=== PATIENT | male | born 2000 | race Caucasian/White ===

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

== ENCOUNTER 2022-01-05 04:11 | Emergency (ER) | payer MEDICAID, SELFPAY ==
[2022-01-05 04:23] VITALS: BP 142/90; PULSE 94; RESP 16; TEMP 36.6; O2SAT 98; BMI 40.6
--- NOTE | 2022-01-05 05:03 | XRR_ITS ---
PROCEDURE INFORMATION: Exam: XR Chest Exam date and time: 01/05/2022 6:06 AM Age: 21 years old Clinical indication: Shortness of breath; Additional info: SOB TECHNIQUE: Imaging protocol: Radiologic exam of the chest. Views: 1 view. COMPARISON: No relevant prior studies available. FINDINGS: Lungs: Unremarkable. No consolidation. Pleural spaces: Unremarkable. No pleural effusion. No pneumothorax. Heart/Mediastinum: Unremarkable. No cardiomegaly. Bones/joints: Unremarkable. XR/XR chest 1V portable [id number] IMPRESSION: No acute findings.
--- NOTE | 2022-01-05 05:03 | ECG_ITS ---
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 Measurements Intervals [place] Rate: 79 P: 49 WA: 150 QRS: 19 QRSD: 122 T: 10 QT: 359 QTc: 412 Interpretive Statements SINUS RHYTHM MODERATE INTRAVENTRICULAR CONDUCTION DELAY [110+ ms QRS DURATION] No previous ECG available for comparison Electronically Signed On 01-05-2022 8:37:41 CDT by Sathish Husain M.D. [id number]
--- NOTE | 2022-01-05 05:38 | W.ED.GENADLT ---
HPI - General Adult General: Chief complaint: General Medical Stated complaint: Hard to breathe Time Seen by Provider: 01/05/22 04:36 Source: patient and family History of Present Illness: 21-year-old male who snorted 3 lines of a white substance 3 days ago. Since that time, he is not been able to sleep well. He gets short of breath while lying down. He feels his heart racing at times. He remains nauseated from this. He is not had the symptoms before, as he has never tried anything like this before, and became worried that something was terribly wrong this morning. Onset (ago): day(s) Radiation: other Quality: other Pain Consistency: other Relieving factors: none Associated symptoms: Reports dyspnea, headache(s), nausea and palpitations; Deny chest pain, confusion, cough, diaphoresis, decreased appetite, fevers/chills, syncope or vomiting Review of Systems Const: Denies: fever(s) or diaphoresis Eyes: Denies: change in vision Card: Reports: palpitations; Denies: chest pain or syncope Resp: Reports: dyspnea GI: Reports: nausea; Denies: vomiting Neuro: Reports: headache(s); Denies: confusion Physical Exam Const: COMMON NORMALS: no acute distress GENERAL APPEARANCE: cooperative and well kempt; not ill appearing HENMT: COMMON NORMALS: normocephalic, atraumatic and Normal external nose present HEAD & SCALP: normocephalic and atraumatic FACE & SINUS: normal facial exam and face symmetric NOSE: Normal external nose present Eye: COMMON NORMALS: Equal, round and reactive pupils present and EOMs intact bilaterally PUPIL: Yes Equal, round and reactive pupils present Neck/C-Spine: GENERAL: Yes trachea midline Chest: CHEST: Yes Symmetrical chest wall rise Resp: COMMON NORMALS: normal respiratory effort, No retractions, No use of accessory muscles and clear to auscultation bilaterally AUSCULTATION: clear to auscultation bilaterally Cardio: COMMON NORMALS: regular rate and regular rhythm RATE: regular rate RHYTHM: regular rhythm GI: COMMON NORMALS: Normal to inspection, nondistended, normoactive bowel sounds present and Soft to palpation PALPATION: Yes Soft to palpation Extremity: COMMON NORMALS: no pedal edema Neuro: RAINER COMA SCALE: document GCS findings Rainer coma scale eye opening: Spontaneous Gilchrist coma scale verbal response: Orientated Gilchrist coma scale motor response: Obey commands Gilchrist coma scale total score: 15 Psych: APPEARANCE: Yes well kempt Course Vital Signs: Vital signs: Vital Signs Temperature 97.8 F 01/05/22 04:23 Pulse Rate 92 01/05/22 06:17 Respiratory Rate 17 01/05/22 06:17 Blood Pressure 138/79 01/05/22 06:17 Pulse Oximetry 98 01/05/22 06:17 [facility] - General Adult Medical Decision Making Patient is clinically stable. Blood pressure is 142/90. Saturations are 98% on room air, his heart rate is 80-90, sinus. His EKG shows a sinus rhythm with mild IVCD delay, which is common in this age group. The axis is normal. There were no ST changes, and no Q waves. Chest x-ray is pending. He was reassured, that although the half-life of methamphetamine is decently long, the effects will wear off. He will be treated with Zofran for nausea. He was told that he can use his albuterol inhaler at home, as he has a history of asthma should he feel short of breath. Lab Data Radiology Impressions Chest X-Ray 01/05/22 05:03 IMPRESSION: No acute findings. Discharge Plan Discharge Patient Disposition: Home Clinical Impression: Adverse drug reaction Condition: Stable Prescriptions: New ondansetron 4 mg film 4 mg PO DAILY PRN (Reason: nausea and vomiting) Qty: 10 0RF Discharge Orders: Discharge ED (Routine); Ordered 01/05/22 Ordered By: Gee Cloud Referrals: Dalton Laurent DO [Primary Care Provider] - 1-3 days Discharge Diet: Advance as tolerated Discharge Activity: Increase activity as tolerated Patient Instructions: Adverse Drug Reaction (ED) Activity Restrictions/Additional Instructions: Return for fever, vomiting, worsening symptoms despite treatment. Hydrate. Coding Level of Care Code ED Cook Helper for Lisette Lynn
[2022-01-05 06:17] VITALS: BP 138/79; PULSE 92; RESP 17; O2SAT 98
== END 2022-01-05 06:18 | disposition home or self-care (01) ==
PROVIDERS: Emergency Provider Emergency Medicine; PCP Electrodiagnostic Medicine
DX: T88.7XXA Unspecified adverse effect of drug or medicament, initial encounter (principal); T43.625A Adverse effect of amphetamines, initial encounter
CPT/HCPCS: 71045; 93005; 99283

== ENCOUNTER 2022-02-24 20:07 | Emergency (ER) | payer MEDICAID, SELFPAY ==
[2022-02-24 20:27] VITALS: BMI 37.3
[2022-02-24 20:30] VITALS: BP 121/60; PULSE 75; RESP 15; TEMP 36.8; O2SAT 98
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
[2022-02-24] MEDS: tetanus-dipt-pertussis 0.5 mL SDV IM (21:25)
[2022-02-24] MEDS: cefTRIAXone 1,000 MG in lidocaine 1% 2.1 ML 2.1 MG IM (21:25)
== END 2022-02-24 21:28 | disposition home or self-care (01) ==
PROVIDERS: Emergency Provider Emergency Medicine; PCP Electrodiagnostic Medicine
DX: S61.411A Laceration without foreign body of right hand, initial encounter (principal); W26.8XXA Contact with other sharp object(s), not elsewhere classified, initial encounter; Z23 Encounter for immunization
CPT/HCPCS: 90471; 90715; 96372; 99284; J0696

== ENCOUNTER 2022-03-16 14:11 | Emergency (ER) | payer MEDICAID, SELFPAY ==
[2022-03-16 14:15] VITALS: PULSE 89; RESP 18; TEMP 36.4; O2SAT 95; BMI 37.3
--- NOTE | 2022-03-16 14:34 | W.ED.GENADLT ---
HPI - General Adult General: Chief complaint: Abdominal Pain Stated complaint: Confusion, body pain Time Seen by Provider: 03/16/22 14:34 History of Present Illness: Patient is a 21-year-old male with history chronic alcohol use presents emergency complaints of left lower quadrant abdominal pain for the last 2 weeks and worsening. Patient tells me that every time she eats, he has significant abdominal pain shortly after. Patient also reports 1 episode emesis today. Patient reports that he Has intermittent forgetfulness and brain fog throughout the day. Patient denies any cough, runny nose sore throat, diarrhea melena/hematochezia. No complaints. No rash or other focal complaints at this time. Onset:2 weeks ago Duration:2 weeks Location:home Severity:moderate Associated symptoms: Reports nausea and vomiting; Deny chest pain, dyspnea, rash or palpitations Review of Systems Const: Denies: fever(s) or chills Eyes: Denies: change in vision ENMT: Denies: mouth pain Card: Denies: chest pain or palpitations Resp: Denies: dyspnea or non-productive cough GI: Reports: abdominal pain, nausea and vomiting; Denies: diarrhea : Denies: dysuria Musc: Denies: extremity pain Skin/Breast: Denies: rash or new lesions Neuro: Denies: weakness in extremities Psych: Reports: other (Normal mood) Andrie/Lymph: Denies: easy bruising PFSH ED PFSH: Medical History No pertinent past medical history Social History Smoking and tobacco status: never smoked Alcohol intake: current Substance/Drug Use: never Physical Exam Const: COMMON NORMALS: alert HENMT: COMMON NORMALS: atraumatic HEAD & SCALP: atraumatic MOUTH: moist mucous membranes not abnormal Eye: COMMON NORMALS: EOMs intact bilaterally and conjunctivae normal CONJUNCTIVA: Yes conjunctivae normal Neck/C-Spine: COMMON NORMALS: full ROM and supple Resp: COMMON NORMALS: normal respiratory effort and clear to auscultation bilaterally AUSCULTATION: clear to auscultation bilaterally Cardio: COMMON NORMALS: regular rate RATE: regular rate GI: COMMON NORMALS: Soft to palpation and non-tender PALPATION: Yes Soft to palpation OTHER: No focal TTP. NO guarding rebound, guarding, rigidity. No CVA tenderness to percussion. Neg Garcia/Neg McBurney's point tenderness, no suprabupic tenderness to palpation. Extremity: COMMON NORMALS: full ROM Neuro: SENSORIUM/ORIENTATION: Yes alert MOTOR EXAM: No Abnormal motor strength present and Other motor observations present (no focal motor deficits) Psych: COMMON NORMALS: speech normal SPEECH: Yes normal speech MOOD & AFFECT: Yes euthymic mood Course Vital Signs: Vital signs: Vital Signs Temperature 97.6 F 03/16/22 14:15 Pulse Rate 89 03/16/22 14:15 Respiratory Rate 18 03/16/22 14:15 Pulse Oximetry 95 03/16/22 14:15 Oxygen Delivery Me thod 03/16/22 14:15 MDM - General Adult Medical Decision Making Patient is a 21-year-old male with history chronic alcohol use presents emergency complaints of left lower quadrant abdominal pain for the last 2 weeks worse with p.o. intake. On exam, patient no focal tenderness palpation. No guarding or rebound tenderness. Patient is afebrile, hemodynamic stable, in no acute pain. White count no show no leukocytosis. Lab within normal. UA negative for any signs of UTI or kidney stones. Patient received GI cocktail and IVF referred feeling symptomatically improved. No suspicion for other acute intra-abdominal pathology including SBO, biliary pathology, appendicitis, diverticulitis, or other emergent condition requiring surgery. Rx Protonix PRN abd pain, maalox/pepcid PRN dyspepsia, and zofran PRN nausea/vomiting Disposition: Discharge. Patient counseled regarding diagnostic impression, treatment plan. Patient given ED strict return precautions to return for continuation, worsening, or development of new symptoms. Instructed to f/u w/ PCP regarding symptoms today. Patient verbalized understanding. Discharge Plan Discharge Condition: Stable Prescriptions: No Action ondansetron 4 mg film 4 mg PO DAILY PRN (Reason: nausea and vomiting) Qty: 10 0RF Referrals: Dalton Laurent DO [Primary Care Provider] - Coding Level of Care Code ED Residential Property Manager for Chg Fwd Exam Comprehensive
--- NOTE | 2022-03-16 14:35 | ECG_ITS ---
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 Measurements Intervals [place] Rate: 73 P: 44 AR: 157 QRS: 22 QRSD: 110 T: 26 QT: 365 QTc: 402 Interpretive Statements SINUS RHYTHM WITH SINUS ARRHYTHMIA Compared to ECG 01/05/2022 05:10:39 Intraventricular conduction delay no longer present Electronically Signed On 03-16-2022 18:26:37 CDT by Ventura Drew M.D. [id number]
[2022-03-16] MEDS: lidocaine 2% viscous 15 ML, aluminum-mag hydrox-simethicon 30 ML, sucralfate oral liq 1 GM PO (14:53)
[2022-03-16] MEDS: sodium chloride 0.9% 1,000 ML 999 ML IV (14:54)
[2022-03-16 14:58] VITALS: BP 115/42; PULSE 89; RESP 18; TEMP 36.4; O2SAT 95
[2022-03-16 15:10] LABS: Add Urine Microscopic? NO; Charge for UA Resulting for Rev
[2022-03-16 15:12] LABS: Basophils # 0.1 10^3/uL (0.0-0.1); Basophils % 0.9 %; Eosinophils # 0.3 10^3/uL (0.0-0.8); Hematocrit 44.7 % (42.0-52.0); Hemoglobin 15.1 g/dL (11.7-16.6); Lymphocytes # 2.5 10^3/uL (1.5-6.5); Lymphocytes % 27.5 %; Mean Corpuscular HGB Conc 33.8 g/dL (30.0-36.0); Mean Corpuscular Hemoglobin 30.8 pg (28.0-34.0); Mean Platelet Volume 9.8 fL (7.4-10.4); Monocytes # 0.8 10^3/uL (0.2-0.9); Monocytes % 8.8 %; Neutrophils # 5.45 10^3/uL (1.8-8.0); Neutrophils % 59.5 %; Nucleated Red Blood Cells % 0 %; Platelet Count 335 10^3/cmm (130-400); Red Blood Count 4.91 10^6/uL (4.1-5.3); Red Cell Distribution Width 12.3 % (12.1-15.1); White Blood Count 9.1 10^3/uL (4.5-13.0)
[2022-03-16 15:21] LABS: Urine Appearance Clear (CLEAR); Urine Color Yellow (Yellow); pH Urine 8 (5-7)
[2022-03-16 15:22] LABS: Bilirubin Urine Neg (Negative); Blood Urine Neg (Negative); Glucose Urine UA Norm (Normal); Ketones Urine Negative (Negative); Leukocyte Esterase Urine Negative (Negative); Nitrate Urine Negative (Negative); Protein Urine Neg (Negative); Sulfosalicylic Acid Urine Negative (Negative); Urobilinogen Urine Norm (Negative)
[2022-03-16 15:33] LABS: Alanine Aminotransferase 28 U/L (0-41); Albumin Level 4.5 g/dL (3.5-5.2); Alkaline Phosphatase 107 U/L (40-130); Anion Gap 14.7 (5-19); Aspartate Amino Transferase 27 U/L (0-40); Blood Urea Nitrogen 12 mg/dL (6-20); Calcium 9.2 mg/dL (8.5-10.5); Carbon Dioxide 28 mmol/L (22-29); Chloride 101 mmol/L (98-107); Glomerular Filtration Rate 143.8 mL/min (90-130); Glucose 90 mg/dL (65-115); Lipase 26 U/L (13-60); Osmolality Calculated 289 mOsm/kg (285-295); Potassium 3.7 mmol/L (3.5-5.1); Sodium 140 mmol/L (136-145); Total Bilirubin 0.5 mg/dL (0.15-1.2); Total Protein 7.5 g/dL (6.6-8.7)
[2022-03-16 16:02] VITALS: BP 115/42; PULSE 89; RESP 18; TEMP 36.4; O2SAT 95
== END 2022-03-16 16:02 | disposition home or self-care (01) ==
PROVIDERS: Emergency Provider Emergency Medicine; PCP Electrodiagnostic Medicine
DX: R10.32 Left lower quadrant pain (principal)
CPT/HCPCS: 80053; 81003; 83690; 85025; 93005; 96360; 99284; J7030

== ENCOUNTER 2022-12-30 12:30 | Emergency (ER) | payer MEDICAID, SELFPAY ==
[2022-12-30 12:51] VITALS: BP 135/89; PULSE 94; RESP 14; TEMP 36.3; O2SAT 98; BMI 37.3
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
[2022-12-30 13:31] LABS: Basophils # 0.1 10^3/uL (0.0-0.1); Basophils % 0.6 %; Eosinophils # 0.2 10^3/uL (0.0-0.8); Hematocrit 47.3 % (42.0-52.0); Hemoglobin 16.2 g/dL (11.7-16.6); Lymphocytes # 2.6 10^3/uL (0.8-4.8); Lymphocytes % 15.2 %; Mean Corpuscular HGB Conc 34.2 g/dL (30.0-36.0); Mean Corpuscular Hemoglobin 31.8 pg (28.0-34.0); Mean Corpuscular Volume 92.9 fl (80-94); Mean Platelet Volume 9.4 fL (7.4-10.4); Monocytes # 1.5 10^3/uL (0.2-0.9); Monocytes % 8.8 %; Nucleated Red Blood Cells % 0 %; Platelet Count 307 10^3/cmm (130-400); Red Blood Count 5.09 10^6/uL (4.1-5.3); Red Cell Distribution Width 12.3 % (12.1-15.1); White Blood Count 17.3 10^3/uL (4.0-10.0)
[2022-12-30] MEDS: iohexol 350 mg/mL 500 mL Btl (per mL) IV (13:47)
[2022-12-30 13:49] LABS: Alanine Aminotransferase 29 U/L (0-41); Albumin Level 4.3 g/dL (3.5-5.2); Alkaline Phosphatase 104 U/L (40-130); Anion Gap 15.7 (5-19); Aspartate Amino Transferase 29 U/L (0-40); Blood Urea Nitrogen 9 mg/dL (6-20); Calcium 9.1 mg/dL (8.5-10.5); Carbon Dioxide 26 mmol/L (22-29); Chloride 99 mmol/L (98-107); Glomerular Filtration Rate 142.4 mL/min (90-130); Glucose 92 mg/dL (65-115); Osmolality Calculated 282 mOsm/kg (285-295); Potassium 3.7 mmol/L (3.5-5.1); Sodium 137 mmol/L (136-145); Total Bilirubin 0.8 mg/dL (0.15-1.2); Total Protein 7.3 g/dL (6.6-8.7)
[2022-12-30] MEDS: neomycin-poly-bacitracin oint 28 gm 1 APPLIC TOPICAL (14:49)
[2022-12-30] MEDS: ketorolac 30 mg/mL INJ IVP (14:49)
--- NOTE | 2022-12-30 14:55 | PC.NURSE ---
RIGHT THUMB DRESSED WITH TELFA AND CLAIRE
[2022-12-30 15:03] VITALS: BP 149/84; PULSE 75; RESP 16
== END 2022-12-30 15:07 | disposition home or self-care (01) ==
PROVIDERS: Emergency Provider Physician Assistant; PCP Electrodiagnostic Medicine
DX: S61.209A Unspecified open wound of unspecified finger without damage to nail, initial encounter (principal); S30.1XXA Contusion of abdominal wall, initial encounter; S09.8XXA Other specified injuries of head, initial encounter; S00.03XA Contusion of scalp, initial encounter; V86.59XA Driver of other special all-terrain or other off-road motor vehicle injured in nontraffic accident, initial encounter
CPT/HCPCS: 70450; 70486; 71260; 72125; 73030; 73502; 74177; 80053; 85025; 96374; 99285; J1885; Q9967

== ENCOUNTER 2023-08-22 16:00 | Emergency (ER) | payer MEDICAID, SELFPAY ==
[2023-08-22 16:16] VITALS: BP 198/90; PULSE 75; RESP 17; TEMP 36.6; O2SAT 96; BMI 40.6
--- NOTE | 2023-08-22 16:28 | ED_ITS ---
HPI - Dental/Oral General: Chief complaint: Dental/Oral Stated complaint: tooth pain Time Seen by Provider: 08/22/23 16:26 History of Present Illness: Patient has a bad tooth on his upper jaw. He has developed swelling and pain in his upper cheek. He has been taking a lot of ibuprofen he says. This is not helping very much. He has not been on any antibiotics. He has not been to see a dentist yet. Review of Systems Narrative: Constitutional symptoms: Negative except as documented in HPI. Skin symptoms: Negative except as documented in HPI. Eye symptoms: Negative except as documented in HPI. ENMT symptoms: Negative except as documented in HPI. Respiratory symptoms: Negative except as documented in HPI. Cardiovascular symptoms: Negative except as documented in HPI. Gastrointestinal symptoms: Negative except as documented in HPI. Genitourinary symptoms: Negative except as documented in HPI. Musculoskeletal symptoms: Negative except as documented in HPI. Neurologic symptoms: Negative except as documented in HPI. Psychiatric symptoms: Negative except as documented in HPI. Endocrine symptoms: Negative except as documented in HPI. [facility] ED PFSH: Medical History (Updated 08/22/23 @ 16:35 by Nannette Boss MD) No pertinent family history No pertinent past medical history Social History Smoking and tobacco/nicotine status: never used tobacco/nicotine Alcohol intake: current Substance/Drug Use: never Physical Exam Narrative: EXAM NARRATIVE: General: Alert, no acute distress. Skin: warm and dry Head: Normocephalic Neck: Trachea midline Eye: Extraocular movements are intact. Ears, nose, mouth and throat: Oral mucosa moist. Tooth #2. Posterior molar right upper. Is broken and appears infected. Some swelling of the right face. Respiratory: Respirations are non-labored Musculoskeletal: Normal ROM Neurological: Alert and oriented to person, place, time, and situation, No focal neurological deficit observed. Psychiatric: Cooperative, appropriate mood & affect. Course Vital Signs: Vital signs: Vital Signs Temperature 97.9 F 08/22/23 16:16 Pulse Rate 75 08/22/23 16:16 Respiratory Rate 17 08/22/23 16:16 Blood Pressure 198/90 08/22/23 16:16 Pulse Oximetry 96 08/22/23 16:16 Oxygen Delivery Me thod Room Air 08/22/23 16:16 MDM - Dental/Oral Medical Decision Making Patient has what appears to be a infected tooth. Starting on antibiotics. He is penicillin allergic which eliminates Augmentin which is the ideal antibiotic. I will place him on clindamycin No radiology studies performed this visit Other Data - Discharged home - Discussed plan with patient. Answered any questions. - Evaluation and treatment of this problem were appropriate in the emergency setting. Discharge Plan Discharge Patient Disposition: Home Clinical Impression: Dental abscess Condition: Stable Prescriptions: New hydrocodone-acetaminophen 5-325 mg tablet 1 tab PO Q6H PRN (Reason: pain) Qty: 20 0RF clindamycin HCl 300 mg capsule 600 mg PO QID 10 Days Qty: 80 0RF No Action ondansetron 4 mg film 4 mg PO DAILY PRN (Reason: nausea and vomiting) Qty: 10 0RF ibuprofen 800 mg tablet 800 mg PO Q8H PRN (Reason: pain) Qty: 20 0RF cyclobenzaprine 10 mg tablet 10 mg PO BID PRN (Reason: muscle spasm and pain) Qty: 20 0RF Discharge Orders: Discharge ED (Routine); Ordered 08/22/23 Ordered By: Nannette Boss Referrals: Dalton Laurent DO [Primary Care Provider] - (Please follow-up with a dentist as soon as possible. You have been screened and evaluated and felt safe for discharge. Health conditions do change or evolve sometimes and as such it is important that you follow up with your Primary Doctor to be re checked, 3-5 days is a general good time frame for follow up. You are always welcome to return to the ED for re assessment if your symptoms are worsening or you have new concerns) Discharge Diet: Usual diet Patient Instructions: Opioid Safety, Pain Management, Dental Abscess (ED) Coding Level of Care Code ED Share[employer] Consultant for Lisette Lynn
[2023-08-22] MEDS: HYDROcodone-acetaminophen 10-325 mg Tablet 1 TAB PO (16:40)
[2023-08-22 16:43] VITALS: BP 198/90; PULSE 75; RESP 17; TEMP 36.6; O2SAT 96
== END 2023-08-22 16:44 | disposition home or self-care (01) ==
PROVIDERS: Emergency Provider Emergency Medicine; PCP Electrodiagnostic Medicine
DX: K04.7 Periapical abscess without sinus (principal)
CPT/HCPCS: 99283

== ENCOUNTER → 2024-03-18 10:45 | Outpatient (BNVA) | payer MEDICAID, SELFPAY | PROVIDERS: PCP Electrodiagnostic Medicine | DX: R05.9 Cough, unspecified (principal) | CPT/HCPCS: 87400; 87426 ==

== ENCOUNTER 2024-05-17 01:43 | Emergency (ER) | payer SELFPAY ==
[2024-05-17 01:52] VITALS: BP 177/120; PULSE 87; RESP 18; TEMP 36.1; O2SAT 98; BMI 40.6
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
[2024-05-17] MEDS: oxymetazoline 0.05% Nasal Spray 15 mL 4 SPRAY NOSTRIL-B (02:39)
[2024-05-17 02:42] VITALS: BP 121/93; PULSE 96; RESP 18; O2SAT 98
[2024-05-17 02:46] VITALS: BP 121/93; PULSE 93; RESP 18; O2SAT 99
[2024-05-17 02:59] VITALS: BP 134/78; PULSE 82; RESP 18; O2SAT 99
== END 2024-05-17 03:00 | disposition home or self-care (01) ==
PROVIDERS: Emergency Provider Emergency Medicine; PCP Electrodiagnostic Medicine
DX: R04.0 Epistaxis (principal)
CPT/HCPCS: 70486; 99284

== ENCOUNTER → 2024-05-20 12:33 | Outpatient (BNVA) | payer SELFPAY | PROVIDERS: PCP Electrodiagnostic Medicine | DX: R05.9 Cough, unspecified (principal) | CPT/HCPCS: 87426 ==

== ENCOUNTER 2024-06-07 13:51 | Emergency (ER) | payer SELFPAY ==
[2024-06-07 13:54] VITALS: BP 143/83; PULSE 82; RESP 16; TEMP 36.7; O2SAT 98
[2024-06-07 14:11] VITALS: PULSE 83; O2SAT 97
--- NOTE | 2024-06-07 14:15 | ED_ITS ---
HPI - Dental/Oral 2 General: Chief complaint: Dental/Oral Stated complaint: dental Time Seen by Provider: 06/07/24 14:06 Source: patient Mode of arrival: ambulatory Limitations: no limitations History of Present Illness: Patient is a 23-year-old male presents to ED today with a complaint of dental pain over the past 2 days and now noticing swelling to the left side of his face. Patient states he has a known bad tooth to his left upper region that sometimes will bother him but normally subside on its own. He does have a dentist appointment scheduled in 2 weeks. He is continuing to eat and drink normally and is not having any difficulty swallowing. No fevers. MD Complaint: tooth pain Teeth map: 1. Onset (ago): day(s) Duration: constant Severity: moderate Relieving factors: nothing Exacerbating factors: nothing Context: history of dental caries and poor dental care Associated symptoms: Reports no associated symptoms; Denies fever(s) or odynophagia Treatment prior to arrival: topical analgesic and oral analgesic Related Data Previous Rx's Medication Instructions Recorded albuterol sulfate 90 mcg/actuation 2 inh inhalation Q4H PRN shortness 05/20/24 aerosol inhaler of breath or wheezing #6.7 grams levofloxacin 750 mg tablet 750 mg PO DAILY 7 days #7 tabs 05/20/24 prednisone 20 mg tablet 60 mg (3 x 20 mg) PO DAILY 5 days 05/20/24 #15 tabs clindamycin HCl 300 mg capsule 300 mg PO Q6H 7 days #28 caps 06/07/24 Allergies Allergy/AdvReac Type Severity Reaction Status Date / Time Penicillins Allergy ALGY-Rash Verified 06/07/24 13:58 Review of Systems 2 Const: Denies: fever(s), chills, body aches, fatigue or malaise ENMT: Reports: dental pain and sinus pain; Denies: throat pain, odynophagia, hoarseness, swelling of lips/tongue, bleeding gums, nasal discharge or nasal congestion Card: Denies: chest pain Resp: Denies: dyspnea GI: Denies: nausea or vomiting Musc: Denies: neck pain Neuro: Denies: headache(s) or dizziness PFSH ED 2 PFSH: Medical History No pertinent family history No pertinent past medical history Social History Smoking and tobacco/nicotine status: unknown if used tobacco/nicotine Alcohol intake: current Substance/Drug Use: never Physical Exam 2 Const: COMMON NORMALS: no acute distress, patient oriented x3, no limitations, alert and well nourished GENERAL APPEARANCE: cooperative NUTRITIONAL APPEARANCE: obese ORIENTATION/CONSCIOUSNESS: Yes awake, Yes oriented to person, Yes oriented to place and Yes oriented to time HENMT: COMMON NORMALS: Normal external nose present FACE & SINUS: edema on the left; no ecchymosis, no erythema and no fluctuance FACE & SINUS IMAGES: 1. mild facial swelling; no drainable abscess appreciated; no facial cellulitis NOSE: Normal external nose present MOUTH: Normal oral and palatal mucosa present, lip normal and other (floor of mouth is soft) TEETH & GINGIVA: Yes caries and Yes poor dentition TEETH & GINGIVA IMAGES: 1. broke/decayed molar THROAT: posterior oropharynx normal and tonsils normal Eye: COMMON NORMALS: Equal, round and reactive pupils present and EOMs intact bilaterally GENERAL EYE: appearance normal, both eyes and all related structures and normal light reflex PUPIL: Yes Equal, round and reactive pupils present DIRECT OPHTHALMOSCOPY: Yes normal light reflex Neck/C-Spine: COMMON NORMALS: no lymphadenopathy GENERAL: Yes normal visual inspection, No anterior neck swelling and No submandibular swelling Neuro: COMMON NORMALS: patient oriented x3 and CN's II-XII intact bilaterally SENSORIUM/ORIENTATION: Yes alert, Yes oriented to person, Yes oriented to place and Yes oriented to time Course 2 Vital Signs: Vital signs: Vital Signs Temperature 98.1 F 06/07/24 13:54 Pulse Rate 83 06/07/24 14:11 Respiratory Rate 16 06/07/24 13:54 Blood Pressure 143/83 06/07/24 13:54 Pulse Oximetry 97 06/07/24 14:11 Oxygen Delivery Me thod Room Air 06/07/24 14:11 MDM - Dental/Oral Medical Decision Making Patient has an allergy to penicillins. Will place him on clindamycin and have him follow-up with his dentist in 2 weeks as scheduled. Return to ED precautions given. Differential Diagnosis Likely dental caries, toothache and dental abscess Medical Records I reviewed the patient's medical records. No radiology studies performed this visit Discharge Plan Discharge Patient Disposition: Home Clinical Impression: Toothache, Dental caries, Dental infection Condition: Stable Prescriptions: New clindamycin HCl 300 mg capsule 300 mg PO Q6H 7 Days Qty: 28 0RF No Action levofloxacin 750 mg tablet 750 mg PO DAILY 7 Days Qty: 7 0RF prednisone 20 mg tablet 60 mg PO DAILY 5 Days Qty: 15 0RF albuterol sulfate 90 mcg/actuation HFA aerosol inhaler 2 inh inhalation Q4H PRN (Reason: shortness of breath or wheezing) Qty: 6.7 0RF Discharge Orders: Discharge ED (Routine); Ordered 06/07/24 Ordered By: Kya Reyes Referrals: Dalton Laurent DO [Primary Care Provider] - Patient Instructions: Dental Caries (Cavities), Toothache (ED), Dental Abscess Activity Restrictions/Additional Instructions: As we discussed, please fill your antibiotics and start them immediately. Follow-up with your dentist as scheduled. You need to return to the emergency department for worsening pain, swelling, severe headache, fevers, visual changes, severe neck pain or swelling, difficulty swallowing or controlling your saliva/secretions, or any other concerns you may have. 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
[2024-06-07 14:40] VITALS: BP 138/75; PULSE 88; O2SAT 99
== END 2024-06-07 14:41 | disposition home or self-care (01) ==
PROVIDERS: Emergency Provider Physician Assistant; PCP Electrodiagnostic Medicine
DX: K08.89 Other specified disorders of teeth and supporting structures (principal); K02.9 Dental caries, unspecified; K04.7 Periapical abscess without sinus
CPT/HCPCS: 99283

== ENCOUNTER 2024-08-15 10:21 | Emergency (ER) | payer SELFPAY ==
--- NOTE | 2024-08-15 11:04 | XR_ITS ---
WS: [id number] XR foot RT min 3V* [id number] REASON FOR EXAM: injury FINDINGS: No acute fracture. No periosteal reaction. Joint spaces of the forefoot, midfoot, and hindfoot are intact and well preserved. No soft tissue abnormality. XR/XR foot RT min 3V* [id number] IMPRESSION: No acute abnormality.
--- NOTE | 2024-08-15 11:04 | XR_ITS ---
WS: [id number] XR ankle RT min 3V* [id number] REASON FOR EXAM: injury FINDINGS: Soft tissue swelling over the lateral malleolus. No acute fracture identified. Joint spaces are intact and well preserved. XR/XR ankle RT min 3V* [id number] IMPRESSION: Soft tissue swelling without acute fracture identified.
[2024-08-15 11:20] VITALS: BP 128/84; PULSE 83; TEMP 36.4; O2SAT 97; BMI 40.6
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
[2024-08-15 12:50] VITALS: PULSE 88; O2SAT 99
== END 2024-08-15 12:53 | disposition home or self-care (01) ==
PROVIDERS: Emergency Provider Physician Assistant; PCP Electrodiagnostic Medicine
DX: S90.31XA Contusion of right foot, initial encounter (principal); V86.99XA Unspecified occupant of other special all-terrain or other off-road motor vehicle injured in nontraffic accident, initial encounter
CPT/HCPCS: 73610; 73630; 99283